=== PATIENT | male | born 1955 | race Caucasian/White ===

== ENCOUNTER 2018-11-09 06:33 | Outpatient (CLI) | payer BC ==
--- NOTE | 2018-11-09 07:54 | ULT ---
ABDOMINAL ULTRASOUND: HISTORY: Abdominal pain. FINDINGS: The gallbladder has a normal sonographic appearance. No evidence of gallstones. Common bile duct is normal caliber measured at 3 mm. The liver is echogenic consistent with fatty infiltration. A left hepatic lobe cyst is identified me asuring up to 1.7 cm. The visualized aorta is unremarkable. The pancreas is partially imaged and appears unremarkable but is mostly obscured. Spleen unremarkable. Both kidneys imaged and appear unremarkable. IMPRESSION: 1. Evidence of hepatic steatosis. 2. Small left hepatic lobe cyst. POS: [facility]
--- NOTE | 2018-11-09 09:41 | RAD ---
CHEST PA AND LATERAL: HISTORY: Hypertension and cough. COMPARISON: 08/28/2015. FINDINGS: Numerous upper healed right rib fractures. Heart size is within normal limits. No confluent pneumon ia, overt edema, or pleural effusion. IMPRESSION: No acute intrathoracic disease. Numerous healed upper right rib fractures, stable. No evidence of p neumonia. POS: [facility]
== END 2018-11-09 06:34 | disposition home or self-care (01) ==
LOC: BICULT 06:33
PROVIDERS: ATTEND Internal Medicine
DX: R05 Cough (principal); I10 Essential (primary) hypertension; R10.9 Unspecified abdominal pain; K76.0 Fatty (change of) liver, not elsewhere classified; K76.89 Other specified diseases of liver
CPT/HCPCS: 71046; 76700

== ENCOUNTER 2018-11-17 06:17 | Emergency (ER) | payer BC | END 2018-11-17 08:06 | disposition home or self-care (01) | LOC: ERS 06:17 | DX: L30.9 Dermatitis, unspecified (principal); E78.5 Hyperlipidemia, unspecified; I10 Essential (primary) hypertension | CPT/HCPCS: 99282 ==

== ENCOUNTER 2022-08-09 14:53 | Outpatient (CLI) | payer MEDICARE, BC ==
[2022-08-09 16:00] LABS: #Eosinphils 0.1 10x3/uL (0.0-0.5); #Monocytes 0.8 10x3/uL (0.0-1.1); #Neutrophils 6.4 10x3/uL (1.5-8.4); %Basophils 0.4 % (0.0-2.0); %Eosinophils 0.5 % (0.0-6.0); %Lymphocytes 31.5 % (18.0-47.0); %Monocytes 7.7 % (0.0-10.0); %Neutrophils 59.5 % (40.0-75.0); Hemoglobin 13.5 g/dL (13.5-17.5); Mean Corpuscular HGB CONC 35.1 g/dL (32.0-36.0); Mean Corpuscular Hemoglobin 35.7 pg (27.0-33.0); Mean Corpuscular Volume 101.9 fl (81.2-95.1); Platelet Count 264 10x3/uL (150-450); Red Blood Cell (RBC) Count 3.78 10x6/uL (4.32-5.72); White Blood Cell (WBC) Count 10.8 10x3/uL (3.5-10.5)
[2022-08-09 16:25] LABS: ALT (SGPT) 22 U/L (8-55); AST (SGOT) 17 U/L (5-34); Albumin 4.5 g/dL (3.4-4.8); Alkaline Phosphatase 63 U/L (40-110); Anion Gap 14 mmol/L (10-20); BUN (Urea Nitrogen) 26 mg/dL (8.4-25.7); Bilirubin, Total 0.3 mg/dL (0.2-1.2); Calc. Creatinine Clearance 0 mL/min (70-130); Calcium 9.3 mg/dL (7.8-10.44); Carbon Dioxide 25 mmol/L (23-31); Chloride 106 mmol/L (98-107); Estimated GFR 45; Globulin 2.8 g/dL (2.4-3.5); Glucose 86 mg/dL (80-115); Protein, Total 7.3 g/dL (5.8-8.1); Sodium 141 mmol/L (136-145)
== END 2022-08-09 14:54 | disposition home or self-care (01) ==
LOC: LABBT 14:53
PROVIDERS: ATTEND Internal Medicine Cardiovascular Disease
DX: Z01.812 Encounter for preprocedural laboratory examination (principal); Z20.822 Contact with and (suspected) exposure to COVID-19
CPT/HCPCS: 80053; 85025; 87811

== ENCOUNTER 2022-08-18 09:16 | Day surgery (SDC) | payer MEDICARE, BC ==
[2022-08-16 14:04] VITALS: BMI 30.7
[2022-08-18] MEDS ORDERED: PROPOFOL 40 ML ONE (10:39)
[2022-08-18] MEDS ORDERED: fentaNYL Citrate/PF 100 MCG/2 ML SYRINGE ONE (10:39)
== END 2022-08-18 12:26 | disposition home or self-care (01) ==
LOC: SDC 09:16
PROVIDERS: ATTEND Internal Medicine Cardiovascular Disease
PROC: B246ZZ4 Ultrasonography of Right and Left Heart, Transesophageal (ICD-10-PCS; principal; 2022-08-18)
PROC: 5A2204Z Restoration of Cardiac Rhythm, Single (ICD-10-PCS; 2022-08-18)
DX: I48.19 Other persistent atrial fibrillation (principal); I08.1 Rheumatic disorders of both mitral and tricuspid valves; I70.0 Atherosclerosis of aorta; I48.92 Unspecified atrial flutter; I10 Essential (primary) hypertension; E78.00 Pure hypercholesterolemia, unspecified; Z86.16 Personal history of COVID-19; Z79.01 Long term (current) use of anticoagulants; Z79.620 Long term (current) use of immunosuppressive biologic; Z79.899 Other long term (current) drug therapy; Z88.8 Allergy status to other drugs, medicaments and biological substances
CPT/HCPCS: 92960; 93005; 93010; 93312; J2704

== ENCOUNTER 2023-11-24 05:59 | Day surgery (SDC) | payer MEDICARE ==
[2023-11-23 10:55] VITALS: BMI 30.8
== END 2023-11-24 06:58 | disposition home or self-care (01) ==
LOC: SDC 05:59
PROVIDERS: ATTEND Internal Medicine Cardiovascular Disease
DX: I48.92 Unspecified atrial flutter (principal); Z53.9 Procedure and treatment not carried out, unspecified reason
CPT/HCPCS: 93005; 93010